=== PATIENT | male | born 1945 | race Caucasian/White ===

== ENCOUNTER 2017-03-26 14:02 | Emergency (ER) | payer MEDICARE, BC ==
[~2017-03-26] VITALS: Ht 180.3 cm; Wt 82.6 kg
[2017-03-26 14:55] VITALS: BP 116/72
== END 2017-03-26 15:47 | disposition home or self-care (01) ==
LOC: ER 14:06
DX: H69.81 Other specified disorders of Eustachian tube, right ear (principal)
CPT/HCPCS: 99282; A4606; Z7610